=== PATIENT | female | born 1980 ===

== ENCOUNTER 2023-11-15 05:46 | Outpatient (RCR) | payer MEDICAID, SELFPAY ==
[2023-11-08] MEDS: Normal Saline Flush 10 ML SYR IVP (11:25)
[2023-11-08] MEDS: DALBAVANCIN 1,500 MG in DEXTROSE 5%-WATER 325 ML 650 MG IVPB (11:52)
[2023-11-15] MEDS: Normal Saline Flush 10 ML SYR IVP (11:46)
[2023-11-15] MEDS: DALBAVANCIN 1,500 MG in DEXTROSE 5%-WATER 325 ML 650 MG IVPB (11:46)
[2023-11-15 11:55] LABS: Abs Immature Grans 0.02 10^3/uL (0.0-0.06); Absolute Eosinophil Count 0.28 10^3/uL (0.0-0.7); Absolute Lymphocyte Count 1.86 10^3/uL (1.2-3.4); Absolute Monocyte Count 0.42 10^3/uL (0.1-0.8); Absolute Neutrophil Count 5.35 10^3/uL (1.2-6.7); Basophils % 1.2 %; Eosinophils % 3.5 %; HGB 8.7 g/dL (11.2-15.7); Immature Grans % 0.2 %; Lymphocytes % 23.2 %; MCHC 31.1 % (32.0-36.0); MCV 87 fL (80-95); MPV 9.4 fL (8.0-11.0); Monocytes % 5.2 %; Neutrophils % 66.7 %; Platelet Count 531 10^3/uL (130-400); RBC 3.22 10^6/uL (3.93-5.22); RDW 13.6 % (11.7-14.6); RDW-SD 43.6 fL; WBC 8.03 10^3/uL (4.4-10.8)
[2023-11-15 13:00] LABS: ALT 25 U/L (14-59); AST 19 U/L (15-37); Alkaline Phosphatase 104 U/L (46-116); Anion Gap 6.2 mmol/L (3-11); BUN 14 mg/dL (7-18); Bilirubin, Total 0.1 mg/dL (0.2-1.0); CO2 28.8 mmol/L (21.0-32.0); CREATININE 0.8 mg/dL (0.55-1.02); Calcium 9.5 mg/dL (8.5-10.1); Chloride 105 mmol/L (98-107); Estimated GFR 93.12 (mL/min/1.73m2); Glucose 162 mg/dL (74-106); Potassium 3.4 mmol/L (3.5-5.1); Sodium 140 mmol/L (136-145)
[2023-11-15 13:04] LABS: C-Reactive Protein < 0.50 mg/dL (<or=0.5)
== END 2023-12-05 23:59 | disposition home or self-care (01) ==
LOC: INF 05:46
PROVIDERS: Internal Medicine Infectious Disease; Visit Provider Family Medicine
DX: M86.112 Other acute osteomyelitis, left shoulder (principal); T81.49XA Infection following a procedure, other surgical site, initial encounter
CPT/HCPCS: 80053; 96365; 85025; 86140; J0875